=== PATIENT | male | born 1960 | race Caucasian/White ===

== ENCOUNTER 2020-05-26 17:29 | Inpatient (IN) | payer OTHER ==
[~2020-05-26] VITALS: Ht 175.3 cm; Wt 57.2 kg
[2020-05-26] MEDS ORDERED: ONDANSETRON 4 MG TAB.RAPDIS ONE (18:26)
[2020-05-26] MEDS ORDERED: ONDANSETRON 4 MG TAB.RAPDIS SL ONE (18:30)
--- NOTE | 2020-05-26 18:30 | NUR ---
GEMMA FROM A FRIENDS HOUSE WHERE THE PT IS STAYING. TO ER BED 13. AWAKE, ALERT BUT INTOXICATED (SMELLS OF ALCOHOL). BROUGHT IN FOR ALCOHOL INTOXICATION. PER EMS, FAMILY IS CONCERED OF PT'S DRINKING AND UNABLE TO TAKE CARE OF HIMSELF BECAUSE OF THE DRINKING. PT REPORTS THAT HE IS NAUSEOUS. NOT NOTED S/S OF WITHDRAWAL. MD WAS AT THE BEDSIDE FOR EVAL. ORDERS RECEIVED, NOTED AND CARRIED OUT.
[2020-05-26 18:39] LABS: BASOPHILS # (AUTO) 0.1 /CMM (0.0-0.2); BASOPHILS % (AUTO) 1.2 % (0.0-2.0); EOSINOPHILS % (AUTO) 0.6 % (0.0-6.0); HEMATOCRIT 37 % (39-51); HEMOGLOBIN 12.5 g/dL (13.5-17.5); LYMPHOCYTES # (AUTO) 1.5 /CMM (0.8-4.8); MEAN CORPUSCULAR HGB CONC 34 g/dl (31.0-36.0); MEAN CORPUSCULAR VOLUME 91 fL (80-96); MONOCYTES # (AUTO) 0.6 /CMM (0.1-1.30); MONOCYTES % (AUTO) 11.1 % (2.0-12.0); NEUTROPHILS # (AUTO) 3.1 /CMM (1.8-8.9); NEUTROPHILS % (AUTO) 59.1 % (43.0-81.0); PLATELET COUNT (AUTO) 92 /CMM (150-450); RED BLOOD CELL COUNT(AUTO) 4.09 MIL/uL (4.5-6.0); WHITE BLOOD COUNT (AUTO) 5.2 K/uL (4.3-11.0)
[2020-05-26 18:45] LABS: CALCIUM, SERUM 9.9 mg/dL (8.5-10.1); CREATININE 2.8 mg/dL (0.6-1.3); POTASSIUM 3.8 mmol/L (3.5-5.1)
[2020-05-26 18:52] LABS: ALBUMIN 4.5 g/dL (3.4-5.0); BILIRUBIN,DIRECT 0.9 mg/dL (0.0-0.2); TOTAL PROTEIN, SERUM 10.2 g/dL (6.4-8.2)
[2020-05-26 19:27] LABS: BAND % (MANUAL) 1 % (0.0-5.0); LYMPHOCYTES % (MANUAL) 29 % (16-48); MONOCYTES % (MANUAL) 10 % (0-11.0); NEUTROPHILS % (MANUAL) 60 (42-76)
--- NOTE | 2020-05-26 19:55 | NUR ---
pt in bed sleeping comfortably. nad noted, braething even and unlabored
[2020-05-26] MEDS ORDERED: IV NS 0.9% 2,000 ML IV ONE (20:00)
--- NOTE | 2020-05-26 20:39 | NUR ---
COVID SWAB COLLECTED AND SENT TO LAB
--- NOTE | 2020-05-26 20:58 | NUR ---
CALLED [facility], PAGED CARLITOS
[2020-05-26] MEDS ORDERED: PHARMACY ADD 1 AMP MVI TO IVF DAILY ONE BAG XX PRN (22:00)
[2020-05-26] MEDS ORDERED: MAGNESIUM HYDROXIDE 30 ML UDC PO PRN (22:00)
[2020-05-26] MEDS ORDERED: ZOLPIDEM TARTRATE 5 MG TABLET PO PRN (22:00)
[2020-05-26] MEDS ORDERED: ACETAMINOPHEN 325 MG TABLET PO PRN (22:00)
[2020-05-26] MEDS ORDERED: Folic acid 1 MG in IV D5W 50 ML IV SCH (22:00)
[2020-05-26] MEDS ORDERED: LORAZEPAM INJ 2 MG/ML VIAL IV PRN (22:00)
[2020-05-26] MEDS ORDERED: Z GUARD REMEDY 2 OZ OINT TP PRN (22:00)
[2020-05-26] MEDS ORDERED: ONDANSETRON HCL/PF 4 MG/2 ML VIAL IVP PRN (22:00)
[2020-05-26] MEDS ORDERED: MAG HYDROX/AL HYDROX/SIMETH 30 ML UDC PO PRN (22:00)
[2020-05-26] MEDS ORDERED: HYDROCODONE/APAP 5/325MG TABLET PO PRN (22:00)
[2020-05-26] MEDS ORDERED: Thiamine 100 MG in IV D5W 50 ML IV SCH (22:00)
--- NOTE | 2020-05-26 22:19 | NUR ---
report given to darren smith for [place]
--- NOTE | 2020-05-26 22:30 | NUR ---
306-2 IS THE NEW BED!
--- NOTE | 2020-05-26 22:40 | NUR ---
REPORT GIVEN TO DANI GAMBOA FOR JAMES.
--- NOTE | 2020-05-26 22:52 | NUR ---
PT TRANSPORTED TO UNIT ON REUCLID WITH EMT AND RN AT BEDSIDE W/ ACLS PROTOCOL. NAD NOTED. PT AMBULATED FROM GURNEY TO BED WITH MODERATE ASSIST.
[2020-05-26 23:00] VITALS: BP 135/82
--- NOTE | 2020-05-26 23:00 | NUR ---
RN NOTES RECEIVED PT. FROM ER WITH DX. OF ETOH WITHDRAWAL, A/OX3, SR ON TELE MONITOR , NOT IN DISTRESS, ADMISSION INSTRUCTION WAS RENDERED, NOT IN DISTRESS, NO PAIN NOTED, DR. URBINA TALKED TO THE PAT AND EXPLAINED ALL HIS TREATMENT, CALL LIGHT WITHIN REACH, SIDERAILS UPX2, CONTINUE TO MONITOR
[2020-05-26] MEDS ORDERED: Folic acid 1 MG/0.2 ML VIAL ONE (23:35)
[2020-05-26] MEDS ORDERED: Thiamine 100 MG/ML VIAL ONE (23:35)
[2020-05-27] VITALS: BP 134/76
[2020-05-27] MEDS: IV NS 0.9% 1,000 ML IV SCH ×3 (00:06→17:52)
[2020-05-27 04:00] VITALS: BP 131/71
--- NOTE | 2020-05-27 06:19 | NUR ---
RN NOTES AWAKE, NOT IN DISTRESS, DENIES PAIN, NO SOB, MORNING CARE RENDERED,CALL LIGHT WITHIN REACH,SIDERAILSUPX2, PT. NEEDS ATTENDED
[2020-05-27 06:26] LABS: BASOPHILS % (AUTO) 0.7 % (0.0-2.0); EOSINOPHILS % (AUTO) 2.1 % (0.0-6.0); HEMATOCRIT 29 % (39-51); HEMOGLOBIN 9.7 g/dL (13.5-17.5); LYMPHOCYTES % (AUTO) 39.8 % (20.0-44.0); MEAN CORPUSCULAR HGB CONC 34 g/dl (31.0-36.0); MEAN CORPUSCULAR VOLUME 91 fL (80-96); MONOCYTES # (AUTO) 0.3 /CMM (0.1-1.30); MONOCYTES % (AUTO) 11.2 % (2.0-12.0); NEUTROPHILS # (AUTO) 1.2 /CMM (1.8-8.9); NEUTROPHILS % (AUTO) 46.2 % (43.0-81.0); RED BLOOD CELL COUNT(AUTO) 3.16 MIL/uL (4.5-6.0); WHITE BLOOD COUNT (AUTO) 2.5 K/uL (4.3-11.0)
[2020-05-27 06:48] LABS: PLATELET COUNT (AUTO) 48 /CMM (150-450)
--- NOTE | 2020-05-27 07:00 | NUR ---
RN NOTES endorsed to incoming nurse to inform MD regarding pt's platelet of 48
[2020-05-27 07:08] LABS: CREATININE 1.4 mg/dL (0.6-1.3); MAGNESIUM 1.7 mg/dL (1.8-2.4); PHOSPHORUS 3.2 mg/dL (2.5-4.9); POTASSIUM 3.2 mmol/L (3.5-5.1)
--- NOTE | 2020-05-27 07:30 | NUR ---
RN Opening Received patient in bed, AO x 3, able to responds all stimuli. Denies pain or distress, respiratory even and unlabored on room air. Skin is warm to touch, keep clean/dry. Pt refused eat BKF, and encouraged oral intake as tolerated. Keep bed in locked with elevated HOB and lower position of the bed for ensure airway, and aspiration precaution. Call light within reach, will continue to monitor.
[2020-05-27 08:00] VITALS: BP 119/66
[2020-05-27] MEDS ORDERED: PHARMACY ADD 1 AMP MVI TO IVF DAILY ONE BAG XX PRN (08:00)
[2020-05-27] MEDS: MULTIVITAMINS,THERAGRAN 1 UDTAB TABLET PO SCH (08:05)
[2020-05-27] MEDS: THIAMINE HCL 100 MG TABLET PO SCH (08:05)
[2020-05-27] MEDS: FOLIC ACID 1 MG TABLET PO SCH (08:05)
[2020-05-27 08:33] LABS: EOSINOPHILS % (MANUAL) 3 % (0-4); LYMPHOCYTES % (MANUAL) 40 % (16-48); MONOCYTES % (MANUAL) 5 % (0-11.0); NEUTROPHILS % (MANUAL) 52 (42-76)
[2020-05-27] MEDS ORDERED: POTASSIUM CHLORIDE 20 MEQ TAB.PRT.SR PO ONE (09:30)
[2020-05-27] MEDS: Magnesium 1GM/D5W 100ML PREMIX 100 ML IV SCH ×2 (10:21→11:17)
[2020-05-27 12:00] VITALS: BP 142/90
[2020-05-27 16:00] VITALS: BP 117/75
--- NOTE | 2020-05-27 16:19 | NUR ---
Patient Plt level was 48 this morning, Dr. Harden made aware.
--- NOTE | 2020-05-27 16:23 | NUR ---
2:30pm This SW met with the patient at bedside. Patient was referred to social media analyst for a homelessness consult. Patient is a 59-year-old male. Patient was responsive in meeting with this social worker masters. Patient was alert and orientatedx3. Patient was able to confirm demographics including date of and social security number on the face sheet. Patient reported to this SW that the lives on a friends porch. Patient reports that he does not know the address but knows that the home is on [address] in [place]. Patient reports knowing how to return to his friends home. Patient is independent in ADLs and IADLs. Patient reports knowing where to go when responding to SW inquiring about food, hygiene, and year-round housing. Patient reports that he receives food stamps. Patient reports he began to drink alcohol at the as a teenager but cannot recall at what age. Patient reports that beer is his drink of choice and when this SW asked how often he consumes beer the patient responded with couple of cans depends on my money. Patient denies suicidal and homicidal ideations, patient responded with it is against my gnosticist, Im Taoism. Patient does not report auditory and visual hallucinations. When patient is medically cleared, he will likely return to his friends home. Patient will need a TAP Card to return to his friends home. This SW asked the patient if he needed any other assistance from SW patient asked for resources stating just in case. SW to provide this patient with homelessness resource packet.
--- NOTE | 2020-05-27 18:28 | NUR ---
RN Closing note Patient in bed having dinner pt stated "I'm trying to eat", denies pain or distress, respiratory even and unlabored on room air O2sat 99%. Skin is warm to touch kept clean/dry, intact IV fluid running 100ml/hr NS, no s/s of over fluid observed. Keep bed in locked with elevated HOB for ensure airway and elevated HOB. Call light within reach, will endorse control operator flow coat.
[2020-05-27 20:00] VITALS: BP 140/75
[2020-05-28] VITALS: BP 114/72
[2020-05-28 04:00] VITALS: BP 119/70
[2020-05-28] MEDS: IV NS 0.9% 1,000 ML IV SCH (05:43)
--- NOTE | 2020-05-28 06:36 | NUR ---
DERRICK BUILDER NOTES AWAKE & RESPONSIVE. NOT IN ANY DISTRESS. NO SOB NOTED. DENIES ANY PAIN OR DISCOMFORT AT THIS TIME. ON TELE SR @ 74 WITH IVF INFUSING WELL. AM CARE DONE. MONITORED ACCORDINGLY. CALL LIGHT WITHIN REACH. BED IN LOWEST POSITION. SR UP X 3 WITH BED ALARM ON FOR SAFETY. WILL ENDORSE TO NEXT SHIFT.
[2020-05-28 06:43] LABS: BASOPHILS % (AUTO) 0.5 % (0.0-2.0); EOSINOPHILS % (AUTO) 2.9 % (0.0-6.0); HEMATOCRIT 28 % (39-51); HEMOGLOBIN 9.5 g/dL (13.5-17.5); LYMPHOCYTES # (AUTO) 0.7 /CMM (0.8-4.8); LYMPHOCYTES % (AUTO) 33.2 % (20.0-44.0); MEAN CORPUSCULAR HGB CONC 34 g/dl (31.0-36.0); MEAN CORPUSCULAR VOLUME 90 fL (80-96); MONOCYTES # (AUTO) 0.2 /CMM (0.1-1.30); MONOCYTES % (AUTO) 10.2 % (2.0-12.0); NEUTROPHILS # (AUTO) 1.1 /CMM (1.8-8.9); NEUTROPHILS % (AUTO) 53.2 % (43.0-81.0); PLATELET COUNT (AUTO) 56 /CMM (150-450); RED BLOOD CELL COUNT(AUTO) 3.12 MIL/uL (4.5-6.0)
[2020-05-28 07:14] LABS: CALCIUM, SERUM 7.5 mg/dL (8.5-10.1); CREATININE 0.8 mg/dL (0.6-1.3); MAGNESIUM 1.9 mg/dL (1.8-2.4)
[2020-05-28 07:39] LABS: EOSINOPHILS % (MANUAL) 2 % (0-4); LYMPHOCYTES % (MANUAL) 28 % (16-48); MONOCYTES % (MANUAL) 3 % (0-11.0); NEUTROPHILS % (MANUAL) 67 (42-76)
[2020-05-28 08:00] VITALS: BP 147/82
--- NOTE | 2020-05-28 09:08 | NUR ---
WOUND CARE CONSULT: LIMITED ASSESSMENT DUE TO PT ONLY ALLOWED ASSESSMENT OF EXTREMITIES. BILATERAL FEET HAVE DEBRIS BETWEEN TOES, TOENAILS ARE LONG AND CURLING AND THERE IS AN ABRASION TO LEFT DORSAL FOOT, PRESENT ON ADMISSION. RT ARM HAS DRY ABRASION, PRESENT ON ADMISSION. ADMISSION PHOTO SHOWS REDNESS/RASH TO GROIN AREA. RECOMMENDATIONS MADE FOR SKIN CARE AND PROTECTION. DISCUSSED WITH NURSING STAFF. RECOMMEND DPM CONSULT. DR OSWALD NOTIFIED OF CONSULT REQUEST. WILL SEE PRN. IN AGREEMENT WITH PLAN OF CARE.
[2020-05-28] MEDS ORDERED: POTASSIUM CHLORIDE 20 MEQ TAB.PRT.SR PO SCH (09:30)
[2020-05-28] MEDS: THIAMINE HCL 100 MG TABLET PO SCH (09:46)
[2020-05-28] MEDS: MULTIVITAMINS,THERAGRAN 1 UDTAB TABLET PO SCH (09:46)
[2020-05-28] MEDS: FOLIC ACID 1 MG TABLET PO SCH (09:46)
[2020-05-28] MEDS ORDERED: MULT-24 PO (10:16)
[2020-05-28] MEDS ORDERED: Thiamine HCL PO (10:16)
--- NOTE | 2020-05-28 13:55 | NUR ---
Given discharge instruction include pickling solution maker medications/side effects, and patient verbally understanding. Patient denies pain or distress, in stable condition.
--- NOTE | 2020-05-28 14:00 | NUR ---
Patient left facility accompanied by staff, in stable condition, refused wound picture take. Patient take bus to go home and provided tap card.
--- NOTE | 2020-05-28 14:15 | NUR ---
Patient left facility accompanied by staff, in stable condition. Patient take bus to go home and provided tap card. Addendum: 05/28/20 at 1551 by PEPPER SWEET RN Error
[2020-05-28] MEDS ORDERED: CLOTRIMAZOLE 1% 15 GM TUBE TP SCH (17:00)
== END 2020-05-28 14:15 | disposition home or self-care (01) | DRG 775 ==
LOC: ER 17:36 → MEDSG2 21:28 → MED 22:34 → TELE 23:21 → MED 05-28 12:09
PROVIDERS: ADMIT Family Medicine; ATTEND Internal Medicine
DX: F10.229 Alcohol dependence with intoxication, unspecified (principal); E87.2 Acidosis; E86.1 Hypovolemia; N17.0 Acute kidney failure with tubular necrosis; E87.1 Hypo-osmolality and hyponatremia; Z59.0 Homelessness; Z83.3 Family history of diabetes mellitus; R62.7 Adult failure to thrive; R74.0 Nonspecific elevation of levels of transaminase and lactic acid dehydrogenase [LDH]; E80.6 Other disorders of bilirubin metabolism; L60.3 Nail dystrophy; M62.562 Muscle wasting and atrophy, not elsewhere classified, left lower leg; M62.561 Muscle wasting and atrophy, not elsewhere classified, right lower leg; S90.812A Abrasion, left foot, initial encounter; X58.XXXA Exposure to other specified factors, initial encounter; Y92.9 Unspecified place or not applicable; R73.9 Hyperglycemia, unspecified; D62 Acute posthemorrhagic anemia
CPT/HCPCS: 36415; 80048-TC; 80061-TC; 80076-TC; 83690-TC; 83735-TC; 84100-TC; 85025-TC; 85730-TC; 87081-TC; C9803-CS; G0378; G0480; J3411; J3475; J3490; J7030; J7060; Q0162